=== PATIENT | female | born 1995 ===

== ENCOUNTER 2021-05-25 22:16 | Emergency (ER) | payer SELFPAY ==
[~2021-05-25] VITALS: Ht 162.6 cm; Wt 50.0 kg
[2021-05-25 22:35] VITALS: BP 88/59
== END 2021-05-25 23:12 | disposition left against medical advice (07) ==
LOC: ER 22:16
DX: R06.02 Shortness of breath (principal); R07.89 Other chest pain; J45.909 Unspecified asthma, uncomplicated; I95.9 Hypotension, unspecified
CPT/HCPCS: 99283